=== PATIENT | male | born 1985 | race Hispanic/Latino ===

== ENCOUNTER 2018-07-23 17:28 | Emergency (ER) | payer SELFPAY ==
[~2018-07-23] VITALS: Ht 175.3 cm; Wt 80.4 kg
[2018-07-23 17:47] VITALS: BP 122/79
== END 2018-07-23 22:30 | disposition home or self-care (01) | DRG 159 ==
LOC: ED 17:28
PROC: 0CQ0XZZ Repair Upper Lip, External Approach (ICD-10-PCS; principal; 2018-07-23)
DX: S01.511A Laceration without foreign body of lip, initial encounter (principal); W22.8XXA Striking against or struck by other objects, initial encounter; Y93.89 Activity, other specified; Y92.009 Unspecified place in unspecified non-institutional (private) residence as the place of occurrence of the external cause

== ENCOUNTER 2018-08-02 11:09 | Emergency (ER) | payer SELFPAY ==
[~2018-08-02] VITALS: Ht 175.3 cm; Wt 82.8 kg
[2018-08-02 11:55] VITALS: BP 124/72
== END 2018-08-02 11:55 | disposition home or self-care (01) | DRG 950 ==
LOC: ED 11:09
DX: S01.511D Laceration without foreign body of lip, subsequent encounter (principal); X58.XXXD Exposure to other specified factors, subsequent encounter